=== PATIENT | male | born 1985 | race Asian ===

== ENCOUNTER 2023-09-09 17:57 | Emergency (ER) | payer BC ==
[~2023-09-09] VITALS: Ht 175.3 cm; Wt 73.6 kg
[2023-09-09 18:00] VITALS: TEMP 97.9
[2023-09-09] MEDS ORDERED: VALTREX1 GM PO (18:48)
[2023-09-09 19:17] VITALS: BP 108/74; PULSE 82
== END 2023-09-09 19:17 | disposition home or self-care (01) ==
LOC: COL.ER 17:57
DX: B02.1 Zoster meningitis (principal)